=== PATIENT | male | born 1965 | race Caucasian/White ===

== ENCOUNTER 2022-01-02 17:43 | Emergency (ER) | payer SELFPAY ==
[~2022-01-02] VITALS: Ht 175.3 cm; Wt 93.9 kg
[2022-01-02 17:49] VITALS: BP 150/91
--- NOTE | 2022-01-02 18:00 | NUR ---
56/M PRESENTS TO ED WITH C/O HIGH BLOOD PRESSURE. STATES HE TOOK HIS BP AT WORK AND IT WAS 170/91, STATES NO HX OF HIGH BLOOD PRESSURE, DENIES HEADACHE, CP. BP IN TRIAGE 150/91. OTHERWISE NO OTHER MEDICAL COMPLAINTS.
[2022-01-02] MEDS ORDERED: CLONIDINE HYDROCHLORIDE 0.1 MG TAB ONE (19:08)
[2022-01-02] MEDS ORDERED: CLONIDINE HYDROCHLORIDE 0.1 MG TAB PO ONE (19:10)
[2022-01-02 19:14] VITALS: BP 141/87
--- NOTE | 2022-01-02 19:21 | NUR ---
Patient discharged with v/s stable. Written and verbal after care instructions ABOUT BLOOD PRESSURE given and explained. Patient verbalized understanding. Ambulatory with steady gait. All questions addressed prior to discharge. Advised to follow up with PMD.
[2022-01-03] MEDS ORDERED: HYDR12.51 PO (10:21)
== END 2022-01-02 19:21 | disposition home or self-care (01) ==
LOC: MED 17:43
DX: R03.0 Elevated blood-pressure reading, without diagnosis of hypertension (principal)
CPT/HCPCS: 99283